=== PATIENT | male | born 1985 | race African-American/Black ===

== ENCOUNTER 2020-09-07 20:08 | Emergency (ER) | payer SELFPAY ==
[~2020-09-07] VITALS: Ht 175.3 cm; Wt 63.6 kg
--- NOTE | 2020-09-07 21:45 | RAD ---
XR EXAM OF ANKLE_RIGHT 3VIEWS, XR FOOT_RIGHT 3 VIEWS Clinical Indication: Reason: R ankle and foot pain Comparison: None. Ankle Findings: There is no acute fracture or dislocation. The bony appearance is normal for patient age and the ali gnment is normal. The ankle mortise is intact. There is no ankle joint effusion. There is no soft tissue swelling. Foot findings: There is no acute fracture or dislocation. Question hammertoe deformities of the second through fifth toes. The bony alignment is normal. There is no soft tissue abnormality. IMPRESSION: No acute bone abnormality. Electronically signed by: Abhay Cain MD (09/07/2020 9:43 PM) [facility]
--- NOTE | 2020-09-07 23:10 | ED.ADGEN ---
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 Patient currently rates pain 2 out of 10 on pain scale, states pain is worse with weightbearing and movement. The pain improves with rest. He denies any numbness, tingling, or difficulty bearing weight on the affected extremity. Review of Systems: Review of Systems: Complete ROS is negative unless otherwise noted in HPI. Allergies: Allergies: Allergies Coded Allergies Type Severity Reaction Last Updated Verified No Known Drug Allergies 09/07/20 No Physical Exam: PE: See Above Constitutional: Well developed, well nourished, no acute distress, non-toxic appearance. [] HENT: Normocephalic, atraumatic, bilateral external ears normal, nose normal. [] Eyes: PERRLA, EOMI, conjunctiva normal, no discharge. [] Neck: Normal range of motion, no stridor. [] Cardiovascular:Heart rate regular rhythm Lungs & Thorax: Respirations even and unlabored, no retractions, no respiratory distress Skin: Warm, dry, no erythema, no rash. [] Extremities: Right foot: Proximal tenderness to palpation without obvious deformity, no crepitus, no hematoma, sensation intact, no cyanosis, ROM intact, no edema. [ Right ankle: Lateral tenderness to palpation without obvious deformity, no crepitus, no edema, no bruising, sensation intact, no cyanosis, ROM intact Neurologic: Alert and oriented X 3, no focal deficits noted. [] Psychologic: Affect normal, judgement normal, mood normal. [] Current Patient Data: Vital Signs: Vital Signs Date Time Temp Pulse Resp B/P (MAP) Pulse Ox O2 Delivery O2 Flow Rate FiO2 09/07/20 20:15 100.0 78 18 169/98 (121) 100 Room Air 100.0 EKG: EKG: [] Heart Score: C/O Chest Pain: No Risk Scores: Score 0 - 3: 2.5% MACE over next 6 weeks - Discharge Home Score 4 - 6: 20.3% MACE over next 6 weeks - Admit for Clinical Observation Score 7 - 10: 72.7% MACE over next 6 weeks - Early Invasive Strategies Radiology/Procedures: Radiology/Procedures: PROCEDURE: FOOT RIGHT 3V XR EXAM OF ANKLE_RIGHT 3VIEWS, XR FOOT_RIGHT 3 VIEWS Clinical Indication: Reason: R ankle and foot pain Comparison: None. Ankle Findings: There is no acute fracture or dislocation. The bony appearance is normal for patient age and the alignment is normal. The ankle mortise is intact. There is no ankle joint effusion. There is no soft tissue swelling. Foot findings: There is no acute fracture or dislocation. Question hammertoe deformities of the second through fifth toes. The bony alignment is normal. There is no soft tissue abnormality. IMPRESSION: No acute bone abnormality. Electronically signed by: Abhay Cain MD (09/07/2020 9:43 PM) [facility] [place] [] Course & Med Decision Making: Course & Med Decision Making Pertinent Labs and Imaging studies reviewed. (See chart for details) [] Booker Disclaimer: Booker Disclaimer: This electronic medical record was generated, in whole or in part, using a voice recognition dictation system. Departure Departure Impression: Primary Impression: Acute right ankle pain Additional Impression: Acute pain of right foot Disposition: 01 HOME / SELF CARE / HOMELESS Condition: STABLE Referrals: NO PCP (PCP) Patient Instructions: Foot Sprain-Brief Additional Instructions: You may take Tylenol or ibuprofen as needed for pain. Apply ice and elevate the affected extremity as needed to help reduce swelling. Activity as tolerated. Follow-up with your primary care doctor for reevaluation in 1 to 2 days, return to the ER if symptoms worsen or fever develops. [facility] [address] [place] [address] [facility] [address] [place] [address] [facility] [address] [facility] [place] [address] [facility] [address] [place] [address] [facility] [address] [place] [address] [facility] [address] [place] [address] [address] Dimitrios [address] [place] [address] [facility] [address] [place] [address] [facility] [address] [place] [address] [facility] [address] [place] [address] Splinting Splinting : Location: Right foot and ankle Pre-Made Type: velcro (Capo wrap) Pre-Proc Neuro Vasc Exam: normal Post-Proc Neuro Vasc Exam: normal, unchanged from pre-exam Problem Qualifiers SHIRA CARRASCO APRN September 07, 2020 23:10
[2020-09-07 23:32] VITALS: BP 157/87
== END 2020-09-07 23:32 | disposition home or self-care (01) ==
LOC: EDBD 20:08 → ER 20:08
DX: M25.571 Pain in right ankle and joints of right foot (principal); M79.671 Pain in right foot; F17.200 Nicotine dependence, unspecified, uncomplicated; X50.9XXA Other and unspecified overexertion or strenuous movements or postures, initial encounter; Y93.89 Activity, other specified; Y92.89 Other specified places as the place of occurrence of the external cause; Y99.8 Other external cause status
CPT/HCPCS: 73610; 73630; 99284